=== PATIENT | male | born 1965 | race Caucasian/White ===

== ENCOUNTER 2022-03-20 10:04 | Emergency (ER) | payer OTHER, SELFPAY ==
[2022-03-20 10:45] VITALS: BP 115/75; PULSE 68; RESP 16; TEMP 35.9; O2SAT 100
--- NOTE | 2022-03-20 10:51 | ED.GENADULT ---
HPI - General Adult General Chief complaint: Urogenital-Male Stated complaint: uti complaint Time Seen by Provider: 03/20/22 10:35 History of Present Illness HPI narrative: Mr Flores is a pleasant 57 y/o male. PMHx UTI. Presents to [facility] clinic today with acute complaints of urinary frequency, urgency, and dysuria for the past 48 hours. 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 -No fever. -No abdominal pain, N/V/D. -Denies flank pain, hematuria, penile or testicular pain or swelling. No penile discharge. Related Data Home Medications Medication Instructions Recorded Confirmed rivaroxaban 20 mg tablet (Xarelto) 20 mg PO DAILY 03/20/22 03/20/22 Allergies Allergy/AdvReac Type Severity Reaction Status Date / Time No Known Allergies Allergy Verified 03/20/22 10:51 Review of Systems Review of Systems: CONSTITUTIONAL: Denies fever, chills, sweats. EYES: Denies visual changes, redness, discharge. ENT: Denies rhinorrhea, congestion, sore throat, otalgia. CARDIOVASCULAR: Denies chest pain, palpitations, edema. RESPIRATORY: Denies dyspnea, wheezing, cough GASTROINTESTINAL: Denies abdominal pain, nausea, vomiting, diarrhea. GENITOURINARY: Positive dysuria, frequency. Negative hematuria, abnormal discharge SKIN: Denies rash or itching. MUSCULOSKELETAL: Denies acute back pain, joint pain, or myalgia. NEUROLOGIC: Denies numbness, or focal weakness. PSYCHIATRIC: Denies anxiety or depression. All other systems have been reviewed: Unless noted remaining ROS Negative. Exam Narrative: GENERAL: This is a well-nourished, well-developed adult, in no apparent distress. HEAD: normocephalic. EYES: Sclera clear/white. EARS: External ears normal. NOSE: External nose normal. Positive Rhinorrhea, no obstruction, nares patent. THROAT: Mucous membranes moist NECK: Neck supple, non-tender CARDIOVASCULAR: Regular rate and rhythm without murmurs, gallops, or rubs. RESPIRATORY: Clear to auscultation. GASTROINTESTINAL: Abdomen soft, non-tender, nondistended. Bowel sounds are active. No guarding. No CVA tenderness. SKIN: warm, intact with no suspicious lesions or rash, good texture and turgor. NEURO: Alert, active, and age appropriate. Course Course Level of Care: Express Care Visit Vital Signs Vital signs: Vital Signs Temperature 35.9 C L 03/20/22 10:45 Pulse Rate 68 03/20/22 10:45 Respiratory Rate 16 03/20/22 10:45 Blood Pressure 115/75 03/20/22 10:45 Pulse Oximetry 100 03/20/22 10:45 Oxygen Delivery Room Air 03/20/22 10:45 Temperature 35.9 C L 03/20/22 10:45 Pulse Rate 68 03/20/22 10:45 Respiratory Rate 16 03/20/22 10:45 Blood Pressure 115/75 03/20/22 10:45 Pulse Oximetry 100 03/20/22 10:45 Oxygen Delivery Room Air 03/20/22 10:45 Medical Decision Making MDM Narrative Medical decision making narrative: -Urine Dips stick: negative leukocytes and nitrites. -However, will place him on CIPRO BID x 1 week, considering early cystis and frequent history. -Pyridium prn. -Increase fluids, water is best. -PCP F/U 1WK. Differential Diagnosis Differential Diagnosis: Differential Diagnosis: Consideration of the following conditions may be warranted for the presenting problem, they are not final diagnoses: Likely UTI, Cystitis, Nephrolithiasis, bacterial vaginosis, Nephritis, candidiasis, vaginitis, pyelonephritis, Venereal Disease, or other. Vital Signs Vital Signs: Vital Signs Temperature 35.9 C L 03/20/22 10:45 Pulse Rate 68 03/20/22 10:45 Respiratory Rate 16 03/20/22 10:45 Blood Pressure 115/75 03/20/22 10:45 Pulse Oximetry 100 03/20/22 10:45 Oxygen Delivery Room Air 03/20/22 10:45 Temperature 35.9 C L 03/20/22 10:45 Pulse Rate 68 03/20/22 10:45 Respiratory Rate 16 03/20/22 10:45 Blood Pressure 115/75 03/20/22 10:45 Pulse Oximetry 100 03/20/22 10:45 Oxygen Delivery Room
== END 2022-03-20 11:08 | disposition home or self-care (01) ==
PROVIDERS: Emergency Provider Nurse Practitioner Adult Health
DX: N30.90 Cystitis, unspecified without hematuria (principal)
CPT/HCPCS: 81003; 99203; G0463